=== PATIENT | female | born 1955 | race Caucasian/White ===

== ENCOUNTER 2017-11-29 13:07 | Emergency (ER) | payer OTHER ==
[~2017-11-29] VITALS: Ht 157.5 cm; Wt 46.9 kg
[2017-11-29 13:58] LABS: HEMOGLOBIN 10.3 G/DL (11.9-15.5); MCH 27.2 PG (29.0-34.0); MCHC 32.2 G/DL (30.0-36.0); MCV 84.7 FL (83-99); PLATELET COUNT 368 K/uL (156-360); RBC DIS.WIDTH-CV 12.6 % (11.8-14.6); RBC DIS.WIDTH-SD 38.5 % (39-53); RED BLOOD COUNT 3.78 M/uL (3.80-5.20); WHITE BLOOD COUNT 8.3 K/uL (4.1-10.2)
[2017-11-29 14:12] LABS: CHLORIDE 103 mEq/L (99-109); POTASSIUM 3.7 mEq/L (3.7-5.4); SODIUM 140 mEq/L (136-147)
[2017-11-29 14:13] LABS: GLUCOSE 104 mg/dL (70-99)
[2017-11-29 14:17] LABS: CREATININE 0.9 mg/dL (0.6-1.3); GFR ESTIMATE (CALCULATED) > 59 mL/min/
[2017-11-29 14:18] LABS: UREA NITROGEN (BUN) 12 mg/dL (9-23)
[2017-11-29 14:41] LABS: APPEARANCE CLEAR ((CLEAR)); BILIRUBIN NEGATIVE; BLOOD NEGATIVE; COLOR STRAW ((YELLOW)); GLUCOSE (STRIP) NEGATIVE; KETONES NEGATIVE; LEUKOCYTES NEGATIVE; NITRITE NEGATIVE; PROTEIN (STRIP) NEGATIVE; SPECIFIC GRAVITY 1.008 (1.000-1.030); UCUL ADDED? NO; UROBILINOGEN 0.2 MG/DL (0.2-1.0)
[2017-11-29 15:00] LABS: ALBUMIN 3.8 g/dL (3.2-4.8)
[2017-11-29 15:03] LABS: TOTAL PROTEIN 7.5 g/dL (6.4-8.3)
[2017-11-29 15:05] LABS: TOTAL BILIRUBIN 0.2 mg/dL (0.0-1.0)
[2017-11-29 15:06] LABS: ALKALINE PHOSPHATASE 158 IU/L (3-129)
[2017-11-29 15:08] LABS: AST (GOT) 21 IU/L (2-34); DIRECT BILIRUBIN 0.1 mg/dL (0.0-0.3)
[2017-11-29 15:09] LABS: ALT (GPT) 20 IU/L (3-49); LIPASE 21 U/L (1.0-51.0)
[2017-11-29 15:22] LABS: TROP-I INTERPRETATION NEGATIVE; TROPONIN-I < 0.01 ng/mL (0.0-0.30)
[2017-11-29] MEDS ORDERED: FLAGYL500 MG PO (17:05)
[2017-11-29 17:23] VITALS: BP 141/84
== END 2017-11-29 17:24 | disposition home or self-care (01) ==
LOC: EME 13:07
PROVIDERS: Physician Assistant
DX: K51.00 Ulcerative (chronic) pancolitis without complications (principal); R42 Dizziness and giddiness; R63.4 Abnormal weight loss; F17.200 Nicotine dependence, unspecified, uncomplicated
CPT/HCPCS: 71046; 74177; 80048; 80076; 81003; 83690; 84484; 85027; 93005; 99281; 99284; J7030

== ENCOUNTER → 2018-01-20 | Outpatient (CLI) | payer OTHER ==
[~2018-01-20] VITALS: Ht 157.5 cm; Wt 46.7 kg
[~2018-01-20] MED LIST: AMBIEN5 MG PO; CYANOCOBALAM1000 MCG PO; FLAGYL500 MG PO; PROBIOTIC1 EAC3 PO; TYLENOL EXTRA500 MG PO; WOMEN'S 50 PLU1 EACH PO
== END | disposition home or self-care (01) ==
LOC: AMB 11:52
PROC: 0DBN8ZX Excision of Sigmoid Colon, Via Natural or Artificial Opening Endoscopic, Diagnostic (ICD-10-PCS; principal; 2018-01-20)
DX: K63.5 Polyp of colon (principal); K63.3 Ulcer of intestine; K56.699 Other intestinal obstruction unspecified as to partial versus complete obstruction; R93.3 Abnormal findings on diagnostic imaging of other parts of digestive tract; R19.7 Diarrhea, unspecified; R63.0 Anorexia; Z80.0 Family history of malignant neoplasm of digestive organs; Z83.79 Family history of other diseases of the digestive system; F17.200 Nicotine dependence, unspecified, uncomplicated
CPT/HCPCS: 88305